=== PATIENT | female | born 1960 | race Caucasian/White ===

== ENCOUNTER 2019-06-25 07:30 | Inpatient (IN) | payer MEDICARE ==
--- NOTE | 2019-06-24 09:41 | HPE ---
DATE OF ADMISSION: 06/25/2019 BRIEF HISTORY OF PRESENT ILLNESS: The patient is a 59-year-old female who has had several episodes of recurrent diverticulitis. More recently, she has had several episodes over the Spring and actually finished her antibiotics about a month ago after having a significant episode of diverticulitis that was persistent and problematic. She had some CAT scans that showed sigmoid diverticulitis and presents for resection. The patient has not had any blood per rectum. She has had no nausea or vomiting. No fevers or chills. PAST MEDICAL HISTORY: Significant for history of , history of carpal tunnel, history of neck surgery with fusion, history of hypertension, hypercholesterolemia, anxiety, depression, and glaucoma. MEDICATIONS: Include hydrochlorothiazide, rosuvastatin, valsartan, Nystatin, triamcinolone, omeprazole, dorzolidomide, Align Probiotic, vitamin D3 and vitamin E. ALLERGIES: CIPRO, BEE STING and MORPHINE. PHYSICAL EXAMINATION: Reveals an obese white female who looks stated age. HEENT: Reveals an atraumatic, normocephalic head with extraocular movements intact. Pupils are equal and reactive to light. Sclerae nonicteric. Oropharynx clear without exudate or lesions. Neck: Supple without adenopathy. Lungs are clear to auscultation without crackles, wheezes or rhonchi. Heart is regular without murmur. Abdomen is softly distended, but nontender. No guarding, no rebound. No peritoneal signs are appreciated, although she has some discomfort in the suprapubic area and in the left lower quadrant with deep palpation. Extremities: Warm, well-perfused. IMPRESSION AND PLAN: The patient has evidence of recurrent episodes of diverticulitis and has had some recurrence in the same area. We have discussed at length operative intervention for her and the plan would be a laparoscopic sigmoid colectomy with coloproctostomy. The risks include, but are not limited to infection, bleeding, damage to surrounding structures including bowel, bladder, nerve vessels, kidney, ureter, spleen and pancreas, and possible need for open operative intervention as well as possible anastomotic leak as well as possible colostomy. The patient will receive an antibiotic as well as mechanical bowel prep preoperatively. She will receive IV antibiotics and have thromboembolic deterrent stockings (TEDS) and sequentials placed as well as a Johnson catheter at the time of the procedure.
[2019-06-25] VITALS (7 sets, daily range): BP systolic 124–143; BP diastolic 61–92
[~2019-06-25] VITALS: Ht 167.6 cm; Wt 96.5 kg
[~2019-06-25 07:30] MED LIST: ALIG4CAP PO; AUGM875T27 PO; AZOP0.2S OD; BACITAB PO; CRES5TAB PO; DORZ2SOL5 OU; ERTAPENEM SODIUM 1 GM in NS MINI-BAG PLUS 50 ML IV ONE; FENT50DI21 IV; HYDR-3644 PO; HYDR25TAB PO; LATA0.009 OU; LR 1,000 ML IV ONE; MAPA500T17 PO; OMEP-218 PO; PRIL20CA PO; RAMI2.5C PO; SIME80TA PO; VALS1TAB49 PO; VANC5INJ5 PO; VITA-157 PO; VITA500038 PO; ZOFR4SOL IV; [UNRECOGNIZED DRUG - CODE] OU
[2019-06-25] MEDS ORDERED: BUPIVACAINE LIPOSOME/PF 1.3% 20ML VIAL (13.3MG/ML)(EXPAREL)(C9290 PER1MG) As Ordered ONE (09:43)
[2019-06-25] MEDS ORDERED: BUPIVACAINE/EPIN 0.25% 30 ML VIAL As Ordered ONE (09:43)
[2019-06-25] MEDS ORDERED: BUPIVACAINE HCL 0.25% 30 ML VIAL As Ordered ONE (09:43)
[2019-06-25] MEDS ORDERED: GLUCAGON FOR INJ 1 MG VIAL (J1610) As Ordered ONE (09:44)
[2019-06-25] MEDS ORDERED: fentaNYL 250 MCG/5 ML INJECTION (J3010) As Ordered ONE (10:14)
[2019-06-25] MEDS ORDERED: MIDAZOLAM INJ 2 MG/2 ML VIAL (J2250) As Ordered ONE (10:14)
[2019-06-25] MEDS ORDERED: dexameTHASONE 4 MG/ML 1ML VIAL (J1100) As Ordered ONE (10:15)
[2019-06-25] MEDS ORDERED: ONDANSETRON 4MG/2ML VIAL (J2405) As Ordered ONE ×2 (10:15→12:25)
[2019-06-25] MEDS ORDERED: ROCURONIUM BROMIDE 50 MG/5 ML VIAL As Ordered ONE ×2 (10:15→12:00)
[2019-06-25] MEDS ORDERED: PROPOFOL 200 MG/20 ML VIAL As Ordered ONE (10:15)
[2019-06-25] MEDS ORDERED: LIDOCAINE 2% INJ 100 MG/5 ML SDV (FOR ANES.) As Ordered ONE (10:15)
[2019-06-25] MEDS ORDERED: METOCLOPRAMIDE INJ 10MG/2ML VIAL (J2765) As Ordered ONE (10:53)
[2019-06-25] MEDS ORDERED: GLYCOPYRROLATE INJ 0.2 MG/ML 2 ML VIAL As Ordered ONE (12:21)
[2019-06-25] MEDS ORDERED: ACETAMINOPHEN 1000MG 100ML IV BTL (OFIRMEV) (J0131 PER 10MG) As Ordered ONE (12:25)
[2019-06-25] MEDS ORDERED: KETOROLAC 60 MG/2 ML VIAL (J1885) As Ordered ONE (12:25)
[2019-06-25] MEDS ORDERED: fentaNYL 100 MCG/2 ML INJECTION (J3010) As Ordered ONE (12:43)
[2019-06-25] MEDS ORDERED: SUGAMMADEX SODIUM 500 MG/5 ML VIAL (BRIDION) As Ordered ONE (13:08)
[2019-06-25] MEDS ORDERED: ONDANSETRON 4MG/2ML VIAL (J2405) IV PRN ×2 (13:15→13:30)
[2019-06-25] MEDS ORDERED: MORPHINE 4 MG/ML 1ML VIAL/SYRINGE (J2270) IV PRN ×2 (13:15)
[2019-06-25] MEDS ORDERED: IPRATROPIUM 0.5MG/ALBUTEROL 2.5MG INH SOL UD 3ML (DUONEB)(J7620) NEB PRN (13:15)
[2019-06-25] MEDS ORDERED: PROMETHAZINE INJ 25 MG/ML VIAL (J2550) IV PRN (13:30)
[2019-06-25] MEDS ORDERED: LR 1,000 ML IV SCH (13:30)
[2019-06-25] MEDS: fentaNYL 100 MCG/2 ML INJECTION (J3010) IV PRN ×4 (13:40→13:55)
[2019-06-25] MEDS: HYDROMORPHONE HCL 0.5 MG/ 0.5 ML SYRINGE (J1170 PER 1) IV PRN ×5 (14:05→14:35)
[2019-06-25] MEDS: NS 1,000 ML IV SCH ×2 (15:17→23:17)
[2019-06-25] MEDS: PANTOPRAZOLE 40MG INJ (PROTONIX) (C9113) IV SCH (15:42)
--- NOTE | 2019-06-25 15:47 | RO ---
DATE OF PROCEDURE: 06/25/2019 PREOPERATIVE DIAGNOSIS: Recurrent episodes of diverticulitis. POSTOPERATIVE DIAGNOSIS: Recurrent episodes of diverticulitis. PROCEDURE: Laparoscopic sigmoid colectomy with coloproctostomy (low anterior resection). SURGEON: Gaurav Maldonaod MD TRUCK MECHANIC APPRENTICE: Dr. Avalos (provided retraction exposure and closure of the abdominal wall as well as coloproctostomy). ANESTHESIA: ESTIMATED BLOOD LOSS (EBL): 50 mL. FLUIDS: Crystalloid: BRIEF PROCEDURE SUMM,HASEEB: The patient was brought to the operating room, was given general anesthesia. After adequate anesthesia and preoperative antibiotics were given, the patient was prepped and draped in usual sterile fashion. Next, a supraumbilical incision was made with skin knife. Blunt dissection was carried down to fascia. Fascia was entered with a Veress needle, insufflated to 15 mm of pressure. A dilating 10 mm trocar was placed at this time and under direct visualization two lateral left-sided trocars were placed as well as two right-sided trocars were placed both 5 and 12 as well, and the patient was placed in steep Trendelenburg position. The pelvis was irrigated copiously until clear and there was a large uterine fibroid sticking off the backside of the uterus, which was pedunculated, sitting on the rectum itself. Several Nabothian cysts were appreciated on the fallopian tubes as well as some very clear looking fluid-filled ovarian cysts. In any case, the patient was placed in Trendelenburg position and the sigmoid colon was mobilized at this time and there was an obvious thickening starting from the rectosigmoid junction to the mid sigmoid area. Thus, the white line of Toldt on the lateral aspect of the colon was taken down with Harmonic scalpel. Some blunt dissection was used to mobilize this mesentery to some extent and then down into the pelvis. Fortunately, the sigmoid colon was relatively redundant in this area and thus, the area that was thickened had a nice transition and it was obvious with the redundancy of the sigmoid colon that I would be able to reach the proximal sigmoid colon/descending colon down into the pelvis. Thus, the mesentery was taken first with Harmonic and then creating windows on the side of the sigmoid vessels and was transected using a IZABELLA vascular load. There was some oozing from the mesentery as it went up towards the bowel distally direct rectum side and this was controlled with Harmonic scalpel. Eventually, I was able to transect the proximal rectum with a IZABELLA green load. Next, the mesentery was mobilized/taken back some more and it was obvious that the sigmoid colon would reached down to the pelvis. Clips were placed on the area that I felt would reach nicely and then a midline incision was created. The bowel brought out through this site. The mesentery was taken away from the undersurface of the colon in this area with the Harmonic scalpel, and once this was cleared a EEA anvil was placed in the stapled end. This was returned to the peritoneal cavity and the #1 Vicryl sutures were used to close the midline incision after a change of gown and gloves. The abdomen was re-insufflated and a end-to-end anastomosis was created with a 25 EEA stapler. Air insufflation afterwards revealed no air leak. The pelvis was copiously irrigated until clear and a Schuyler-Mcclain drain was brought out through the left lower quadrant incision. The right lower quadrant 12 mm site was closed with #0 Vicryl and all incisions were closed with marleni. Dry sterile dressing was applied. The patient was awakened from her anesthesia, extubated, brought to recovery room awake, alert, and hemodynamically stable. Sponge and needle counts correct times two.
[2019-06-25] MEDS: IPRATROPIUM 0.5MG/ALBUTEROL 2.5MG INH SOL UD 3ML (DUONEB)(J7620) NEB SCH (19:54)
[2019-06-25] MEDS: KETOROLAC 30 MG/ML VIAL (J1885) IV SCH (19:59)
[2019-06-25] MEDS: ALVIMOPAN 12 MG CAPSULE (ENTEREG) PO SCH (20:54)
[2019-06-26] VITALS: BP 140/61
[2019-06-26] MEDS: KETOROLAC 30 MG/ML VIAL (J1885) IV SCH ×4 (01:20→18:27)
[2019-06-26] MEDS: IPRATROPIUM 0.5MG/ALBUTEROL 2.5MG INH SOL UD 3ML (DUONEB)(J7620) NEB SCH ×4 (01:32→19:32)
[2019-06-26 06:00] VITALS: BP 141/64
[2019-06-26 06:41] LABS: HEMATOCRIT 31.4 % (36.0-47.0); HEMOGLOBIN 10.6 g/dl (12.0-15.5); MEAN CORPUSCULAR HGB CONC 33.8 g/dl (32.0-36.5); MEAN CORPUSCULAR VOLUME 91.8 fl (80.0-96.0); PLATELET COUNT, AUTOMATED 272 10^3/uL (150-450); RED BLOOD COUNT 3.42 10^6/uL (4.00-5.40); WHITE BLOOD COUNT 14.6 10^3/uL (4.0-10.0)
[2019-06-26] MEDS: NS 1,000 ML IV SCH (07:07)
[2019-06-26 07:29] LABS: BLOOD UREA NITROGEN 11 MG/DL (7-18); CALCIUM LEVEL 8.1 MG/DL (8.8-10.2); CARBON DIOXIDE LEVEL 25 MEQ/L (21-32); CHLORIDE LEVEL 107 MEQ/L (98-107); CREATININE FOR GFR 0.74 MG/DL (0.55-1.30); GLOMERULAR FILTRATION RATE > 60.0 (>45); GLUCOSE, FASTING 103 MG/DL (70-100); SODIUM LEVEL 141 MEQ/L (136-145)
[2019-06-26] MEDS: PANTOPRAZOLE 40MG INJ (PROTONIX) (C9113) IV SCH (09:52)
[2019-06-26] MEDS: ALVIMOPAN 12 MG CAPSULE (ENTEREG) PO SCH ×2 (09:52→19:56)
[2019-06-26 10:00] VITALS: BP 148/60
[2019-06-26] MEDS ORDERED: ERTAPENEM SODIUM 1 GM in NS MINI-BAG PLUS 50 ML IV ONE (12:00)
[2019-06-26 14:00] VITALS: BP 145/66
[2019-06-26 18:00] VITALS: BP 145/64
--- NOTE | 2019-06-26 19:44 | IPN ---
DATE: 06/26/2019 The patient is status post laparoscopic low anterior resection yesterday and seems to be doing well overall from a surgical standpoint, not having a significant amount of pain or discomfort. She had some problems with her catheter kinking last night but eventually they figured this issue out and has had good urine output since that time. She has had no fevers or chills. Her hematocrit is slightly on the low side with a white count elevated as not unexpected after a significant operative intervention. At this point on her physical examination, abdomen is soft, nondistended, nontender. No guarding. No rebound. No peritoneal signs are appreciated. Drainage is serosanguineous and drainage has significantly dropped off at this point. IMPRESSION AND PLAN: The patient is status post colectomy and seems to be doing well from a surgical standpoint. My recommendation is that we increase her activity, we decrease her IV, and we will probably get her Johnson catheter out tomorrow and plan on some sips and chips today. Unfortunately because of her morbid obesity, it is hard to tell if she is distended but it does not appear that way at this time.
[2019-06-26] MEDS: PERCOCET 5MG/325MG TAB PO PRN (19:55)
[2019-06-26 22:00] VITALS: BP 138/68
[2019-06-27] MEDS: IPRATROPIUM 0.5MG/ALBUTEROL 2.5MG INH SOL UD 3ML (DUONEB)(J7620) NEB SCH ×4 (00:41→20:50)
[2019-06-27] MEDS: KETOROLAC 30 MG/ML VIAL (J1885) IV SCH ×4 (01:20→18:03)
[2019-06-27] MEDS: NS 1,000 ML IV SCH (01:20)
[2019-06-27 02:00] VITALS: BP 137/62
[2019-06-27 06:00] VITALS: BP 149/67
[2019-06-27 07:58] LABS: BLOOD UREA NITROGEN 12 MG/DL (7-18); CALCIUM LEVEL 8.1 MG/DL (8.8-10.2); CARBON DIOXIDE LEVEL 28 MEQ/L (21-32); CHLORIDE LEVEL 109 MEQ/L (98-107); CREATININE FOR GFR 0.75 MG/DL (0.55-1.30); GLOMERULAR FILTRATION RATE > 60.0 (>45); GLUCOSE, FASTING 76 MG/DL (70-100); POTASSIUM SERUM 4.1 MEQ/L (3.5-5.1); SODIUM LEVEL 143 MEQ/L (136-145)
[2019-06-27 08:35] LABS: HEMATOCRIT 31.5 % (36.0-47.0); HEMOGLOBIN 10.1 g/dl (12.0-15.5); MEAN CORPUSCULAR HEMOGLOBIN 30.8 pg (27.0-33.0); MEAN CORPUSCULAR HGB CONC 32.1 g/dl (32.0-36.5); PLATELET COUNT, AUTOMATED 248 10^3/uL (150-450); RED BLOOD COUNT 3.28 10^6/uL (4.00-5.40); WHITE BLOOD COUNT 13.7 10^3/uL (4.0-10.0)
[2019-06-27] MEDS: PANTOPRAZOLE 40MG INJ (PROTONIX) (C9113) IV SCH (09:47)
[2019-06-27] MEDS: ALVIMOPAN 12 MG CAPSULE (ENTEREG) PO SCH ×2 (09:48→22:47)
[2019-06-27 10:00] VITALS: BP 132/65
[2019-06-27] MEDS: PERCOCET 5MG/325MG TAB PO PRN ×2 (11:02→18:04)
[2019-06-27 14:00] VITALS: BP 120/66
--- NOTE | 2019-06-27 18:41 | IPN ---
DATE: 06/27/2019 The patient overall has been doing relatively well since yesterday. She has been up out of bed. She has been slowly increasing her activity, but otherwise from my standpoint, seems to be making some slow but progressive improvement. From her standpoint, she has not had any nausea. No vomiting. No flatus. No bowel movements but has had some minimal incisional pain, but otherwise seems to be without complaints. She has been afebrile. Schyuler-Mcclain drain has decreased with some serosanguineous drainage. Incisions are clean and dry without any erythema, drainage, or discharge. IMPRESSION AND PLAN: The patient seems to be making some slow but progressive improvements. We will have her continue to increase her activity. We will discontinue her Johnson and start her on a clear liquid diet. We will see how she does over the next 24 hours. I anticipate we should probably be able to start her on a regular diet tomorrow and possibly discharge her over this weekend depending on how she is doing. She seemed to have good pain relief with the Percocet that she was getting last night. We will see if that makes a difference with her getting up and moving around as well.
[2019-06-27 22:00] VITALS: BP 147/67
[2019-06-28] MEDS: IPRATROPIUM 0.5MG/ALBUTEROL 2.5MG INH SOL UD 3ML (DUONEB)(J7620) NEB SCH ×4 (01:47→20:57)
[2019-06-28] MEDS: KETOROLAC 30 MG/ML VIAL (J1885) IV SCH ×4 (02:32→18:46)
[2019-06-28 06:00] VITALS: BP 152/83
[2019-06-28 06:11] LABS: HEMATOCRIT 28.8 % (36.0-47.0); HEMOGLOBIN 9.7 g/dl (12.0-15.5); MEAN CORPUSCULAR HEMOGLOBIN 32.6 pg (27.0-33.0); MEAN CORPUSCULAR HGB CONC 33.7 g/dl (32.0-36.5); MEAN CORPUSCULAR VOLUME 96.6 fl (80.0-96.0); PLATELET COUNT, AUTOMATED 238 10^3/uL (150-450); RED BLOOD COUNT 2.98 10^6/uL (4.00-5.40); WHITE BLOOD COUNT 12.1 10^3/uL (4.0-10.0)
[2019-06-28 06:33] LABS: BLOOD UREA NITROGEN 8 MG/DL (7-18); CALCIUM LEVEL 8.6 MG/DL (8.8-10.2); CARBON DIOXIDE LEVEL 28 MEQ/L (21-32); CHLORIDE LEVEL 107 MEQ/L (98-107); CREATININE FOR GFR 0.62 MG/DL (0.55-1.30); GLOMERULAR FILTRATION RATE > 60.0 (>45); GLUCOSE, FASTING 86 MG/DL (70-100); POTASSIUM SERUM 3.6 MEQ/L (3.5-5.1); SODIUM LEVEL 142 MEQ/L (136-145)
[2019-06-28 10:00] VITALS: BP 146/71
[2019-06-28] MEDS: ALVIMOPAN 12 MG CAPSULE (ENTEREG) PO SCH ×3 (10:31→19:59)
[2019-06-28] MEDS: PANTOPRAZOLE 40MG INJ (PROTONIX) (C9113) IV SCH (10:31)
[2019-06-28] MEDS: hydroCHLOROthiazide 25 MG TAB PO SCH (10:31)
[2019-06-28] MEDS: VALSARTAN 40MG TABLET (DIOVAN) PO SCH (10:32)
[2019-06-28 14:00] VITALS: BP 142/67
[2019-06-28 18:00] VITALS: BP 135/60
[2019-06-28 22:00] VITALS: BP 146/65
[2019-06-28] MEDS: PERCOCET 5MG/325MG TAB PO PRN (22:06)
[2019-06-29] MEDS: KETOROLAC 30 MG/ML VIAL (J1885) IV SCH ×5 (01:00→18:35)
[2019-06-29] MEDS: IPRATROPIUM 0.5MG/ALBUTEROL 2.5MG INH SOL UD 3ML (DUONEB)(J7620) NEB SCH ×4 (01:46→21:20)
[2019-06-29 02:00] VITALS: BP 146/64
[2019-06-29 06:00] VITALS: BP 144/69
[2019-06-29] MEDS: traMADol 50 MG TAB PO PRN ×2 (06:54→13:15)
[2019-06-29 07:33] LABS: HEMATOCRIT 30.7 % (36.0-47.0); MEAN CORPUSCULAR HEMOGLOBIN 30.5 pg (27.0-33.0); MEAN CORPUSCULAR HGB CONC 32.6 g/dl (32.0-36.5); MEAN CORPUSCULAR VOLUME 93.6 fl (80.0-96.0); PLATELET COUNT, AUTOMATED 252 10^3/uL (150-450); RED BLOOD COUNT 3.28 10^6/uL (4.00-5.40); WHITE BLOOD COUNT 10.3 10^3/uL (4.0-10.0)
[2019-06-29 07:43] LABS: BLOOD UREA NITROGEN 10 MG/DL (7-18); CALCIUM LEVEL 8.8 MG/DL (8.8-10.2); CARBON DIOXIDE LEVEL 29 MEQ/L (21-32); CHLORIDE LEVEL 105 MEQ/L (98-107); CREATININE FOR GFR 0.66 MG/DL (0.55-1.30); GLOMERULAR FILTRATION RATE > 60.0 (>45); GLUCOSE, FASTING 79 MG/DL (70-100); POTASSIUM SERUM 3.9 MEQ/L (3.5-5.1); SODIUM LEVEL 142 MEQ/L (136-145)
[2019-06-29] MEDS: PANTOPRAZOLE 40MG INJ (PROTONIX) (C9113) IV SCH (09:00)
--- NOTE | 2019-06-29 09:16 | IPNPDOC ---
Text Note Date of Service The patient was seen on 06/29/19. NOTE No acute events overnight. Tolerating diet and ambulating without any difficu lty. She has a little back pains, but she thinks it is from the bed. Stools are loose, and the drain is still clear. No fevers. VSSAF NAD abd - soft, nd, TTP appropriate, drain - serosanguinous labs - below A) 59y/o female s/p sigmoid resection for diverticulitis P) reg diet ambulate plan on d/c home tomorrow. Akshat Avalos DO VS,Nader, I+O VS, Nader, I+O Laboratory Tests 06/29/19 05:29 Red Blood Count 3.28 L, Mean Corpuscular Volume 93.6, Mean Corpuscular Hemoglobin 30.5, Mean Corpuscular Hemoglobin Concent 32.6, Red Cell Distribution Width 13.8, Calcium Level 8.8 Vital Signs Date Time Temp Pulse Resp B/P (MAP) Pulse Ox O2 Delivery O2 Flow Rate FiO2 06/29/19 07:24 14 06/29/19 06:00 98.1 64 144/69 (94) 98 06/26/19 22:00 1.0 I&O- Last 24 Hours up to 6 AM 06/29/19 06:00 Intake Total 760 ml Output Total 2030 ml Balance -1270 ml YUMIKO AVALOS DO Jun 29, 2019 09:15
[2019-06-29] MEDS: ALVIMOPAN 12 MG CAPSULE (ENTEREG) PO SCH ×2 (09:31→20:09)
[2019-06-29] MEDS: hydroCHLOROthiazide 25 MG TAB PO SCH (09:31)
[2019-06-29] MEDS: VALSARTAN 40MG TABLET (DIOVAN) PO SCH (09:31)
[2019-06-29 10:00] VITALS: BP 125/62
[2019-06-29 14:00] VITALS: BP 134/51
[2019-06-29] MEDS: PERCOCET 5MG/325MG TAB PO PRN (18:41)
[2019-06-29] MEDS: PANTOPRAZOLE 20 MG TAB PO SCH (18:42)
[2019-06-29] MEDS: SENOKOT S TAB PO SCH (20:08)
[2019-06-29 22:00] VITALS: BP 147/64
[2019-06-30] MEDS: KETOROLAC 30 MG/ML VIAL (J1885) IV SCH ×2 (00:07→06:04)
[2019-06-30 02:00] VITALS: BP 148/65
[2019-06-30] MEDS: IPRATROPIUM 0.5MG/ALBUTEROL 2.5MG INH SOL UD 3ML (DUONEB)(J7620) NEB SCH ×2 (02:00→07:22)
[2019-06-30 06:00] VITALS: BP 145/66
[2019-06-30 06:45] LABS: HEMATOCRIT 29.4 % (36.0-47.0); HEMOGLOBIN 9.8 g/dl (12.0-15.5); MEAN CORPUSCULAR HEMOGLOBIN 29.8 pg (27.0-33.0); MEAN CORPUSCULAR VOLUME 89.4 fl (80.0-96.0); PLATELET COUNT, AUTOMATED 282 10^3/uL (150-450); RED BLOOD COUNT 3.29 10^6/uL (4.00-5.40); WHITE BLOOD COUNT 9.9 10^3/uL (4.0-10.0)
[2019-06-30 06:46] LABS: MEAN CORPUSCULAR HGB CONC 33.3 g/dl (32.0-36.5)
[2019-06-30 06:52] LABS: BLOOD UREA NITROGEN 8 MG/DL (7-18); CALCIUM LEVEL 8.9 MG/DL (8.8-10.2); CARBON DIOXIDE LEVEL 30 MEQ/L (21-32); CHLORIDE LEVEL 103 MEQ/L (98-107); CREATININE FOR GFR 0.67 MG/DL (0.55-1.30); GLOMERULAR FILTRATION RATE > 60.0 (>45); GLUCOSE, FASTING 84 MG/DL (70-100); SODIUM LEVEL 140 MEQ/L (136-145)
[2019-06-30] MEDS: traMADol 50 MG TAB PO PRN (07:53)
[2019-06-30] MEDS: SENOKOT S TAB PO SCH (09:16)
[2019-06-30] MEDS: hydroCHLOROthiazide 25 MG TAB PO SCH (09:16)
[2019-06-30] MEDS: PANTOPRAZOLE 20 MG TAB PO SCH (09:16)
[2019-06-30] MEDS: ALVIMOPAN 12 MG CAPSULE (ENTEREG) PO SCH (09:16)
[2019-06-30 09:17] VITALS: BP 129/54
[2019-06-30] MEDS: VALSARTAN 40MG TABLET (DIOVAN) PO SCH (09:17)
[2019-06-30] MEDS ORDERED: SENN-52 PO (11:36)
[2019-06-30] MEDS ORDERED: PERCOCET PO (11:36)
[2019-06-30] MEDS: PERCOCET 5MG/325MG TAB PO PRN (12:05)
== END 2019-06-30 13:43 | disposition home or self-care (01) | DRG 331 ==
LOC: M OR 08:50 → M MSPAV 14:56
PROVIDERS: ADMIT Surgery; ATTEND Surgery
PROC: 0DBN4ZZ Excision of Sigmoid Colon, Percutaneous Endoscopic Approach (ICD-10-PCS; principal; 2019-06-25 11:00)
DX: K57.32 Diverticulitis of large intestine without perforation or abscess without bleeding (principal); I10 Essential (primary) hypertension; E78.00 Pure hypercholesterolemia, unspecified; F41.9 Anxiety disorder, unspecified; F32.9 Major depressive disorder, single episode, unspecified; H40.9 Unspecified glaucoma; Z79.899 Other long term (current) drug therapy; Z88.5 Allergy status to narcotic agent; Z88.8 Allergy status to other drugs, medicaments and biological substances; Z91.038 Other insect allergy status

== ENCOUNTER 2022-03-08 10:16 | Outpatient (RCR) | payer MEDICARE ==
[~2022-03-08 10:16] MED LIST changes: -ERTAPENEM SODIUM 1 GM in NS MINI-BAG PLUS 50 ML IV ONE; +HYDR-3490 PO; -HYDR25TAB PO; -LR 1,000 ML IV ONE; +OMEP-173 PO; -OMEP-218 PO; +PERCOCET PO; +SENN-52 PO; -VALS1TAB49 PO; +VALS40TA9 PO; -VITA-157 PO; +VITAE40CA PO
== END 2022-03-12 ==
LOC: M PT 10:16
PROVIDERS: ATTEND Student in an Organized Health Care Education/Training Program
DX: N81.4 Uterovaginal prolapse, unspecified (principal); R35.0 Frequency of micturition

== ENCOUNTER → 2022-04-12 | Outpatient (RCR) | payer MEDICARE | LOC: M PT 03-15 10:24 | PROVIDERS: ATTEND Student in an Organized Health Care Education/Training Program | DX: R35.0 Frequency of micturition (principal); N81.4 Uterovaginal prolapse, unspecified ==

== ENCOUNTER 2022-04-19 09:36 | Outpatient (RCR) | payer MEDICARE | END 2022-05-12 | LOC: M PT 09:36 | PROVIDERS: ATTEND Student in an Organized Health Care Education/Training Program | DX: R35.0 Frequency of micturition (principal); N81.4 Uterovaginal prolapse, unspecified ==